=== PATIENT | male | born 1950 | race Caucasian/White ===

== ENCOUNTER 2024-02-21 12:40 | Outpatient (CLI) | payer MEDICARE, OTHER, SELFPAY ==
--- NOTE | ~2024-02-21 | MR_ITS ---
MRI of the left foot CLINICAL HISTORY: Arch pain, plantar fascial fibromatosis TECHNIQUE: Axial proton-density and proton-density fat-sat images, sagittal T1-weighted and STIR imag es, and coronal T1-weighted and proton-density fat-sat images were acquired of the forefoot. FINDINGS: No fracture, osteomyelitis, or other suspicious bone marrow signal abnormality seen. There is mild to moderate degenerative change of the first metatarsophalangeal joint, with subchondral reac tive marrow edema at the first metatarsal head. Remaining joint spaces are well preserved. No signifi cant joint effusion identified. Flexor and extensor tendons are intact. No intermetatarsal bursitis or Toledo's neuroma identified. V isualized plantar fascia is intact, without evidence of plantar fascial mass. Intrinsic musculature o f the foot unremarkable. No soft tissue mass or fluid collection identified. Lisfranc ligament intact . IMPRESSION: Mild to moderate degenerative change of the first MTP joint. Reviewed, dictated and finalized at location .
--- NOTE | ~2024-02-21 | MR_ITS ---
MRI of the left ankle Clinical history: Plantar fasciitis, flexor tendon rupture Technique: Coronal proton-density and proton-density fat-sat images, axial proton-density and proton- density fat-sat images, and sagittal proton-density and proton-density fat-sat images were acquired. Findings: Syndesmotic ligaments are intact. Anterior and posterior talofibular ligaments, and calcane ofibular ligament are intact. Deltoid ligament is intact. Medial flexor tendons, peroneal tendons, anterior extensor tendons, and Achilles tendon are intact. T here is advanced tendinosis of the very distal tibialis posterior tendon. There is mild tenosynovitis of the tibialis posterior tendon sheath. There is mild tenosynovitis of the extensor digitorum longu s tendon sheath near the ankle. There is probable focal high-grade chondral malacia the medial corner of the talar dome. No articular surface irregularity seen. There is mild degenerative change of the talonavicular articulation. No s ignificant bone marrow signal abnormality seen. There is probable ganglion cyst posterior to the talu s. Plantar fascia intact. No evidence for plantar fasciitis. No soft tissue mass or other fluid collecti on seen. Impression: Advanced tendinosis of the distal tibialis posterior tendon. Tenosynovitis of the tibialis posterior and extensor digitorum longus tendon sheaths. Focal high-grade chondral malacia the medial corner of the talar dome. Probable ganglion cyst posterior to the talus. Reviewed, dictated and finalized at [facility]. Impression: Advanced tendinosis of the distal tibialis posterior tendon. Tenosynovitis of the tibialis posterior and extensor digitorum longus tendon sh eaths. Focal high-grade chondral malacia the medial corner of the talar dome. Probable ganglion cyst posterior to the talus.
== END 2024-02-21 12:41 ==
LOC: GOSHIMG 12:42
PROVIDERS: PCP Podiatrist Foot & Ankle Surgery; Visit Provider Podiatrist Foot & Ankle Surgery
DX: S93.422A Sprain of deltoid ligament of left ankle, initial encounter (principal); M66.372 Spontaneous rupture of flexor tendons, left ankle and foot; M72.2 Plantar fascial fibromatosis; M76.822 Posterior tibial tendinitis, left leg; M65.872 Other synovitis and tenosynovitis, left ankle and foot; M94.272 Chondromalacia, left ankle and joints of left foot; M19.072 Primary osteoarthritis, left ankle and foot; X58.XXXA Exposure to other specified factors, initial encounter
CPT/HCPCS: 73718; 73721

== ENCOUNTER 2024-08-14 10:39 | Outpatient (CLI) | payer MEDICARE, OTHER, SELFPAY ==
--- NOTE | ~2024-08-14 | MR_ITS ---
Corrected Report Removed incorrect provider 08/15/2024 [facility] This report was recreated on 08/15/2024. Original report was signed by Dwayne Eddy M.D. on 08/15/2024 6:40 . EXAMINATION: MR pelvis wo con DATE: 08/14/2024 11:35 INDICATION: Right hamstring strain and pain. TECHNIQUE: Magnetic resonance imaging (MRI) of the pelvis was performed without intravenous contrast. COMPARISON: None. FINDINGS: There are bilateral inguinal hernias containing fat. There is diverticulosis of the colon without evidence of diverticulitis. Alignment is normal. There is severe lumbar spondylosis. There is mild osteoarthritis of the hips. There is moderate right hamstring origin tendinopathy. There is a partial tear of the left hamstring origin. The iliopsoas tendons are normal. There is mild bilateral gluteus minimus tendinopathy. The right gluteus medius tendon is normal. There is a partial tear of left gluteus medius tendon. There is mild bilateral trochanteric bursitis. There is subcutaneous edema lateral to proximal left femur. IMPRESSION: 1. Moderate right hamstring origin tendinopathy. 2. Mild osteoarthritis of the hips. Reviewed, dictated and finalized at location A. CHOOL ASSISTANT TEACHER MTDD
== END 2024-08-14 10:40 | disposition home or self-care (01) ==
LOC: GOSHIMG 10:40
PROVIDERS: PCP Podiatrist Foot & Ankle Surgery
DX: S76.302A Unspecified injury of muscle, fascia and tendon of the posterior muscle group at thigh level, left thigh, initial encounter (principal); M16.0 Bilateral primary osteoarthritis of hip; S76.311A Strain of muscle, fascia and tendon of the posterior muscle group at thigh level, right thigh, initial encounter
CPT/HCPCS: 72195

== ENCOUNTER 2025-05-28 11:41 | Outpatient (CLI) | payer MEDICARE, SELFPAY ==
--- NOTE | ~2025-05-28 | XR_ITS ---
X-rays right wrist Indication: Pain, M 25.531 Comparison: None Technique: 4 views right wrist Findings/Impression: 1. SLAC wrist, i.e., severe widening of scapholunate interval, complete dissociation, with proximal migration of capitate. 2. Radiocarpal joint space narrowing. 3. No acute fracture. Reviewed, dictated and finalized at location R.
--- OUTSIDE RECORDS SUMMARY | 2025-05-28 13:28 | XMS_ITS | Clinical Summary ---
Author Organization [facility] Address [address] [place] [address] Care Team Providers Care Manager Style Name Role Phone Pierre Sheets MD Primary Care Provider [phone] Allergies No known active allergies Medications citalopram 10 MG tablet Take 10 mg by mouth nightly at bedtime. at bedtime. 9 Active nitroglycerin 0.4 MG/HR Nitroglycerin 0.4 mg; under tongue as needed for chest pain; 5; 31-May-2006; Active 6 Active LOVASTATIN OR Take by mouth daily. 6 Active Active Problems No known active problems Social History Tobacco Use Types Packs/Day Years Used Date Smoking Tobacco: Never Smokeless Tobacco: Never Alcohol Use Standard Drinks/Week Comments No 0 (1 standard drink = 0.6 oz pur e alcohol) AUDIT-C Answer Date Recorded Frequency of Alcohol Consumption Never 09/17/2019 Average Number of Drinks Not on file 019 Frequency of Binge Drinking Not on file 08/21 Sex and Gender Information Value Date Recorded Sex Assigned at Not on file Legal Sex Male 6:46 PM CDT Gender Identity Not on file Sexual Orientation Not on file Last Filed Vital Signs Vital Sign Reading Time Taken Comments Blood Pressure 120/70 09/17/2019 10:28 AM CRIME SCENE EXAMINER Pulse 68 05/31/2006 11:22 AM CDT Regu lar Temperature - - Respiratory Rate 14 05/31/2006 11:22 AM CDT Oxygen Saturation - - Inhaled Oxygen Concentration - - Weight 83.5 kg (184 lb) 05/31/2006 11:22 AM CDT Height 180.3 cm (5' 11) 05/31/2006 11:22 AM CDT Body Mass Index 25.66 05/31/2006 11:22 AM CDT Plan of Treatment Health Maintenance Due Date Last Done Comments Colorectal Cancer Screening Colonoscopy (10 Years) 1950 Hepatitis C 1969 DTaP, Tdap and Td Vaccines ( 1 - Tdap) 1970 Annual Medicare Wellness Visit 2016 Pneumococcal Vaccine: 50+ Years (2 of 2 - PPSV23) 08/29/2018 08/29/2017 COVID-19 Vaccine (1 - 2023-2 5 season) 2024 RSV Immunization or 60+ Years (1 - 1-dose 75+ series) 2026 Zoster Vaccines Completed 06/05/2018, 03/07/2018, 04/09/2013 Meningococcal B Vaccine Aged Out No l onger eligible based on patient's age to complete this topic Meningococcal Vaccine Aged Out No princess ewa eligible based on patient's age to complete this topic RSV Immunizations Under 20 Months Aged Out No longer eligible b ased on patient's age to complete this topic Insurance MEDICARE [address] [employer] Care Teams Manager Style Relationship Specialty Start Date End Date Pierre Sheets MD [address] [place] [address] PCP - General FAMILY PRACTICE 12/28/18
--- OUTSIDE RECORDS SUMMARY | 2025-05-28 13:28 | XMS_ITS | Clinical Summary ---
Author Organization [facility] Health Address [address] [place] [address] Care Team Providers Care Wedger And Gluer Name Role Phone Unavailable Primary Care Provider Unavailabl e Social History Tobacco Use Types Packs/Day Years Used Date Smoking Tobacco: Never Assessed Sex and Gender Information Value Date Recorded Sex Assigned at Not on file Legal Sex Male 2:56 AM PST Gender Identity Not on file Sexual Orientation Not on file Plan of Treatment Not on file
--- OUTSIDE RECORDS SUMMARY | 2025-05-28 13:28 | XMS_ITS | Clinical Summary ---
Author Organization [facility] [email or web address] Address [address] [place] [address] Care Team Providers Care Feed Grinder Name Role Phone Red Cm MD Unavailable [phone] Blade Green MD Primary Care Provider [phone] Source Comments [facility],non-owned Affiliates and Associated Physician Practices is amultiple site organization consisting of ambulatory clinics and hospital sitesin [place], [place], [place] and [place]. This disclosure is being madepursuant to the Care Everywhere program and may not contain all information available regarding this patient. Last updated 18.[facility] [email or web address] Allergies No known active allergies Medications * Be aware that medications may not be up to date on this document. Always verify current medications with the patient. atorvastatin (Lipitor) 20 MG tablet TAKE 1 TABLET BY MOUTH AT BEDTIME. DISCONTINUE LOVASTATIN Active celecoxib (CeleBREX) 100 MG capsule Take 1 (one) capsule by mouth 2 times daily Active clonazePAM (KlonoPIN) 0.5 MG tablet TAKE 1 TABLET BY MOUTH DAILY 30 MINUTES BEFORE BEDTIME Active meloxicam (Mobic) 7.5 MG tablet TAKE 1 TABLET BY MOUTH DAILY FOR 3 WEEKS 4 Active pramipexole (Mirapex) 1 MG tablet Take 1 (one) tablet by mouth at bedtime Active pregabalin (Lyrica) 225 MG capsule Take 1 (one) capsule by mouth once daily Active meloxicam (Mobic) 15 MG tablet Take 1 (one) tablet by mouth once daily 30 tablet 1 4 Active Active Problems Problem Noted Date Diagnosed Date Primary osteoarthritis of right knee 02/02/2024 Social History Tobacco Use Types Packs/Day Years Used Date Smoking Tobacco: Never Smokeless Tobacco: Never Tobacco Cessation:Counseling Given: Not Answered Alcohol Use Standard Drinks/Week Comments Yes 5 (1 standard drink = 0.6 oz pur e alcohol) PHQ-2 Answer Date Recorded Patient Health Questionnaire-2 Score 0 01/24/2024 Sex and Gender Information Value Date Recorded Sex Assigned at Not on file Legal Sex Male 2:45 PM CDT Gender Identity Not on file Sexual Orientation Not on file Last Filed Vital Signs Vital Sign Reading Time Taken Comments Blood Pressure - - Pulse - - Temperature - - Respiratory Rate - - Oxygen Saturation - - Inhaled Oxygen Concentration - - Weight 79.4 kg (175 lb) 01/31/2024 2:02 PM CDT Height 180.3 cm (5' 11) 01/31/2024 2:02 PM CDT Body Mass Index 24.41 01/31/2024 2:02 PM CDT Plan of Treatment Health Maintenance Due Date Last Done Comments COLOGUARD (AGES 45-75) - COL ON CA SCREENING 1950 COLON MONITORING 1950 COLONOSCOPY - COLON CA SCREENING 1951 CT COLONOGRAPHY - COLON CA SCREENING 1950 Colorectal Cancer Screening 1950 FIT - COLON CA SCREENING 1950 FLEX SIG - COLON CA SCREENING 1950 MEDICARE AWV 12 MONTHS 1950 HEPATITIS C SCREENING 04/14/1969 DTAP/TDAP/TD VACCINES (1 - Tdap) 1970 PNEUMOCOCCAL VACCINE 50+ (1 of 1 - PCV) 2001 ZOSTER VACCINE (1 of 2) 2001 COVID-19 VACCINE ( - 2023-2 5 season) 2024 DEPRESSION SCREENING 09/19/2024 01/31/2024 INFLUENZA VACCINE (#1) 2025 Respiratory Syncytial Virus (RSV) Vaccine Pt: or over 60 yrs (1 - 1-dose 75+ series) 2026 HEPATITIS B VACCINE Aged Out No longe r eligible based on patient's age to complete this topic HIB VACCINE Aged Out No longer eligi ble based on patient's age to complete this topic HPV VACCINE Aged Out No longer eligi ble based on patient's age to complete this topic MENINGOCOCCAL (Group B) VACC INE SHARED DECISION-MAKING Aged Out No longer eligibl e based on patient's age to complete this topic MENINGOCOCCAL GROUPS A/C/Y/W VACCINE Aged Out No longer eligible b ased on patient's age to complete this topic Insurance MEDICARE Care Teams Feed Grinder Relationship Specialty Start Date End Date Blade Green MD [address] [facility] [address] [place] [address] PCP - General Family Medicine 01/31/24 [place] [address] [address] Surgeon Orthopedic Surgery 01/31/24
--- OUTSIDE RECORDS SUMMARY | 2025-05-28 13:28 | XMS_ITS | Encounter Summary ---
Author Organization [facility] Health Address [address] [place] [address] Care Team Providers Care Supply Chain Intern Name Role Phone Unavailable Primary Care Provider Unavailabl e Prior Encounters Date Type Department Care Team Description 10/08/2019 Converted 13x Documents [place] [facility] [address] [place] [address] <No scans attached> 10/08/2019 Converted CPS Chart Documents [place] [facility] [address] [place] [phone] <No scans attached> Plan of Treatment Not on file Procedures Procedure Name Priority Date/Time Associated Diagnosis Comments 14 PONTIC - PFM - POST Routine 09/28/2016 1:00 AM MST 3 PONTIC - PFM - POST Routine 09/28/2016 1:00 AM MST 15 RETAINER CROWN - PFM - POST Routine 09/28/2016 1:00 AM MST 13 RETAINER CROWN - PFM - POST Routine 09/28/2016 1:00 AM MST 4 RETAINER CROWN - PFM - POST Routine 09/28/2016 1:00 AM MST 2 RETAINER CROWN - PFM - POST Routine 09/28/2016 1:00 AM MST 30 O AMALGAM 1 SURFACE Routine 09/28/2016 1:00 AM MST 29 O AMALGAM 1 SURFACE Routine 09/28/2016 1:00 AM MST 18 ENDODONTIC THERAPY, MOLAR TOOTH (EXCLUDING FINAL HOAHAOISM) Routine 09/28/2016 1:00 AM MST 10 ENDODONTIC THERAPY, ANTERIOR TOOTH (EXCLUDING FINAL HOAHAOISM) Routine 09/28/2016 1:00 AM MST 8 ENDODONTIC THERAPY, ANTERIOR TOOTH (EXCLUDING FINAL HOAHAOISM) Routine 09/28/2016 1:00 AM MST 9 IMPLANT CROWN UNIT Routine 09/28/2016 1:00 AM MST 9 IMPLANT Routine 09/28/2016 1:00 AM MST 8 CROWN PFM ANT Routine 09/28/2016 1:00 AM MST 18 CORE BUILDUP, INCLUDING ANY PINS WHEN REQUIRED Routine 09/28/2016 1:00 AM MST 18 CEMENT CROWN Routine 09/28/2016 1:00 AM MST 18 CERECFIRED CROWNPOST Routine 09/28/2016 1:00 AM MST 31 LIMITED ORAL EVALUATION - PROBLEM FOCUSED Routine 09/28/2016 1:[address] [facility] SINGLE X-RAY Routine 09/28/2016 1:[address] [facility] Visit Diagnoses Not on file
--- OUTSIDE RECORDS SUMMARY | 2025-05-28 13:28 | XMS_ITS | CCD ---
Author Name Interface, [id number] [address] [facility] [place] [address] Reason for Visit Social History Date Name Value 11/26/2022 Sex Male
== END 2025-05-28 11:42 | disposition home or self-care (01) ==
PROVIDERS: PCP Family Medicine; Visit Provider Student in an Organized Health Care Education/Training Program
DX: M25.531 Pain in right wrist (principal)
CPT/HCPCS: 73110

== ENCOUNTER 2025-09-16 10:56 | Outpatient (CLI) | payer MEDICARE, SELFPAY ==
--- OUTSIDE RECORDS SUMMARY | 2025-09-16 11:34 | XMS_ITS | Clinical Summary ---
Author Organization [facility] [employer] Address [address] [place] [address] Care Team Providers Care Supervisor Carding Name Role Phone Red Cm MD Unavailable [phone] Blade Green MD Primary Care Provider [phone] Source Comments [facility],non-owned Affiliates and Associated Physician Practices is amultiple site organization consisting of ambulatory clinics and hospital sitesin [place], [place], [place] and [place]. This disclosure is being madepursuant to the Care Everywhere program and may not contain all information available regarding this patient. Last updated 18.[facility] Allergies No known active allergies Medications * Be aware that medications may not be up to date on this document. Alwaysverify current medications with the patient. atorvastatin (Lipitor) [...] 01/31/2024 2:02 PM CDT Plan of Treatment Upcoming Encounters Date Type Department Care Team (Late st Contact Info) Description 01/06/2026 2:00 PM CDT Office Visit [facility] [address] [address] [place] [address] [address] Health Maintenance Due Date Last Done Comments [...] 2001 ZOSTER VACCINE (1 of 2) 2001 DEPRESSION SCREENING 09/19/2024 01/31/2024 COVID-19 VACCINE (1 - 2024-2 6 season) 2025 INFLUENZA VACCINE (#1) 2025 Respiratory Syncytial Virus [...] complete this topic Insurance MEDICARE Care Teams Supervisor Carding Relationship Specialty Start Date End Date Blade Green MD [address] [phone] PCP - General Family Medicine 01/31/24 [place] [address] [address] [address] Surgeon Orthopedic Surgery 01/31/24
--- OUTSIDE RECORDS SUMMARY | 2025-09-16 11:34 | XMS_ITS | Clinical Summary ---
Author Organization [facility] Health Address [address] [place] [address] Care Team Providers Care Trap Puller Name Role Phone Unavailable Primary Care Provider [...]
--- OUTSIDE RECORDS SUMMARY | 2025-09-16 11:34 | XMS_ITS | CCD ---
Author Name Interface, [id number] [address] Organization [facility] [place] [address] Reason for Visit Social History Date Name Value 11/26/2022 Sex Male
--- OUTSIDE RECORDS SUMMARY | 2025-09-16 11:34 | XMS_ITS | Encounter Summary ---
Author Organization [facility] Health Address [address] [place] [address] Care Team Providers Care Chemical Research Engineer Name Role Phone Unavailable Primary Care Provider Unavailabl e Prior Encounters Date Type Department Care Team Description 10/08/2019 Converted 13x Documents [place] [facility] [address] [place] [address] <No scans attached> 10/08/2019 Converted CPS Chart Documents [place] [facility] [address] [place] [phone] <No scans attached> Plan of Treatment Not [...] 18 ENDODONTIC THERAPY, MOLAR TOOTH (EXCLUDING FINAL WORSHIP) Routine 09/28/2016 1:00 AM MST 10 ENDODONTIC THERAPY, ANTERIOR TOOTH (EXCLUDING FINAL WORSHIP) Routine 09/28/2016 1:00 AM MST 8 ENDODONTIC THERAPY, ANTERIOR TOOTH (EXCLUDING FINAL WORSHIP) Routine 09/28/2016 1:00 AM MST 9 IMPLANT [...] - PROBLEM FOCUSED Routine 09/28/2016 1:00 AM [facility] SINGLE X-RAY Routine 09/28/2016 1:00 AM [facility] Visit Diagnoses Not on file
--- OUTSIDE RECORDS SUMMARY | 2025-09-16 11:34 | XMS_ITS | Clinical Summary ---
Author Organization [facility] Address [address] [place] [address] Care Team Providers Care Java Designer Name Role Phone Pierre Sheets MD Primary Care Provider [phone] Allergies No known active allergies Medications citalopram [...] Comments Blood Pressure 120/70 09/17/2019 10:28 AM MAINTENANCE CARPENTER Pulse 68 05/31/2006 11:22 AM CDT Regu [...] Vaccine: 50+ Years (2 of 2 - PCV20 or PCV21) 08/29/2018 08/29/2017 COVID-19 Vaccine (1 - 2024-2 6 season) 2025 Influenza Adult (#1) 2025 07/24/2018, 08/19/2016 RSV Immunization or 60+ Years (1 - 1-dose 75+ series) 2026 Zoster Vaccines Completed 06/05/2018, 03/07/2018, 04/09/2013 Hepatitis A Vaccines Aged Out No long er eligible based on patient's age to complete this topic Meningococcal B Vaccine Aged Out No l onger eligible based on patient's age to complete this topic Meningococcal Vaccine Aged Out No princess ewa eligible based on patient's age to complete this topic RSV Immunizations Under 20 Months Aged Out No longer eligible b ased on patient's age to complete this topic Insurance MEDICARE [employer] Care Teams Java Designer Relationship Specialty Start Date End Date Pierre Sheets MD [address] [place] [address] PCP - General FAMILY PRACTICE 12/28/18
== END 2025-09-16 10:57 | disposition home or self-care (01) ==
LOC: ANHAUDIO 10:56
PROVIDERS: PCP Family Medicine; Visit Provider Family Medicine
DX: H74.93 Unspecified disorder of middle ear and mastoid, bilateral (principal); R42 Dizziness and giddiness
CPT/HCPCS: 92557; 92567